=== PATIENT | female | born 1985 | race Caucasian/White ===

== ENCOUNTER 2018-07-20 11:31 | Emergency (ER) | payer OTHER ==
[2018-07-20 11:40] VITALS: BMI 26.0
[2018-07-20 13:38] LABS: BASO % 0.6 % (0-2.0); EOS % 0.8 % (0-4.5); HEMATOCRIT 41.5 % (32.4-45.2); HEMOGLOBIN 14.1 GM/dL (10.7-15.3); LYMPH % 22.6 % (8-40); MCH 32.2 pg (25.7-33.7); MEAN CELL VOLUME 94.5 fl (80-96); MEAN PLT VOLUME 8.4 fl (7.5-11.1); MONO % 6.2 % (3.8-10.2); NEUT % 69.8 % (42.8-82.8); PLATELET COUNT 369 K/MM3 (134-434); RBC 4.39 M/mm3 (3.60-5.2); RDW 12.4 % (11.6-15.6); WHITE BLOOD COUNT 6.8 K/mm3 (4.0-10.0)
[2018-07-20 14:02] LABS: ALBUMIN 4.4 g/dl (3.4-5.0); BILIRUBIN,TOTAL 0.2 mg/dL (0.2-1); CALCIUM 9.4 mg/dL (8.5-10.1); CREATININE 0.7 mg/dL (0.55-1.3); POTASSIUM 4.1 mmol/L (3.5-5.1); TOT PROT 8.1 g/dl (6.4-8.2)
--- NOTE | 2018-07-20 14:26 | PDOC ---
History of Present Illness - General Chief Complaint: Chest Pain Stated Complaint: HYPERTENSION Time Seen by Provider: 07/20/18 13:03 History Source: Patient Exam Limitations: No Limitations - History of Present Illness Initial Comments: 07/20/18 13:39 32-year-old female presents to ED with complaints of intermittent headache upper abdominal pain, and right-sided chest tightness for the past 2 weeks without aggravating or alleviating factors. 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 Patient currently asymptomatic since arrival Timing/Duration: intermittent Severity: mild Associated Symptoms: reports: denies symptoms Past History - Travel Traveled outside of the country in the last 30 days: No Close contact w/someone who was outside of country & ill: No - Past Medical History Allergies/Adverse Reactions: Allergies Allergy/AdvReac Type Severity Reaction Status Date / Time No Known Allergies Allergy Verified 07/20/18 11:40 Home Medications: Ambulatory Orders Acetaminophen [Tylenol] 650 mg PO PRN 11/08/17 Azithromycin [Zithromax -] 250 mg PO UTDICT #6 tab 11/08/17 Methylprednisolone [Medrol Dose Gio] 4 mg PO ASDIR #21 tablet 11/08/17 Anemia: Yes COPD: No - Immunization History Immunization Up to Date: Yes - Suicide/Smoking/Psychosocial Hx Smoking History: Current some day smoker Have you smoked in the past 12 months: No Number of Cigarettes Smoked Daily: 1 Information on smoking cessation initiated: No Hx Alcohol Use: No Drug/Substance Use Hx: No Substance Use Type: None Patient Lives Alone: No Lives with/in: spouse/SO Review of Systems - Review of Systems Able to Perform ROS?: No Is the patient limited Croatian proficient: No Constitutional: No: Symptoms Reported HEENTM: No: Symptoms Reported Respiratory: No: Symptoms reported Cardiac (ROS): Yes: Chest Pain (right-sided) ABD/GI: Yes: Abdominal cramping : No: Symptoms Reported Musculoskeletal: No: Symptoms Reported Integumentary: No: Symptoms Reported Neurological: Yes: Headache Endocrine: No: Symptoms Reported Hematologic/Lymphatic: No: Symptoms Reported *Physical Exam - Vital Signs Last Vital Signs Temp Pulse Resp BP Pulse Ox 98.0 F 88 16 123/74 100 07/20/18 11:37 07/20/18 11:37 07/20/18 11:37 07/20/18 11:37 07/20/18 11:37 - Physical Exam General Appearance: Yes: Nourished, Appropriately Dressed. No: Apparent Distress HEENT: positive: EOMI, SALINAS, TMs Normal, Pharynx Normal. negative: Pale Conjunctivae Neck: positive: Supple Respiratory/Chest: positive: Chest Tender (right sided at the third to fourth intercostal space lateral of sternum extending to distally of MCL), Lungs Clear , Normal Breath Sounds. negative: Respiratory Distress, Accessory Muscle Use Cardiovascular: positive: Regular Rhythm, Regular Rate. negative: Murmur Gastrointestinal/Abdominal: positive: Normal Bowel Sounds, Soft. negative: Distended, Tenderness Musculoskeletal: negative: CVA Tenderness Extremity: positive: Normal Capillary Refill. negative: Pedal Edema Integumentary: positive: Normal Color, Warm, Moist Neurologic: positive: Motor Strength 5/5 (ambulatory) ED Treatment Course - LABORATORY CBC & Chemistry Diagram: 07/20/18 13:15 07/20/18 13:15 - ADDITIONAL ORDERS Additional order review: Laboratory Results 07/20/18 07/20/18 13:15 13:15 Sodium 138 Potassium 4.1 Chloride 105 Carbon Dioxide 25 Anion Gap 7 L BUN 5 L Creatinine 0.7 Est GFR (CKD-EPI)AfAm 134.75 Est GFR (CKD-EPI)NonAf 116.26 Random Glucose 88 Calcium 9.4 Total Bilirubin 0.2 AST 20 ALT 24 Alkaline Phosphatase 115 Creatine Kinase 87 Troponin I < 0.02 Total Protein 8.1 Albumin 4.4 07/20/18 13:15 RBC 4.39 MCV 94.5 MCHC 34.0 RDW 12.4 MPV 8.4 Neutrophils % 69.8 D Lymphocytes % 22.6 D Monocytes % 6.2 Eosinophils % 0.8 Basophils % 0.6 Medical Decision Making - Medical Decision Making 07/20/18 13:53 Complaint: Episodic headache right-sided chest pain and epigastric burning over the past few weeks without discomfort presently Exam: Reproducible right-sided chest pain with no abdominal tenderness or neuro focal findings. Plan: Labs ordered 07/20/18 14:53 Laboratory Tests 07/20/18 07/20/18 07/20/18 13:15 13:15 13:15 WBC 6.8 Hgb 14.1 Hct 41.5 D Neutrophils % 69.8 D Sodium 138 Potassium 4.1 Chloride 105 Carbon Dioxide 25 Anion Gap 7 L BUN 5 L Creatinine 0.7 Random Glucose 88 Calcium 9.4 Total Bilirubin 0.2 AST 20 ALT 24 Alkaline Phosphatase 115 Creatine Kinase 87 Troponin I < 0.02 Total Protein 8.1 Albumin 4.4 Patient continues to be asymptomatic. Patient will be discharged home with referral to neurologist. *DC/Admit/Observation/Transfer Diagnosis at time of Disposition: Headache, Chest pain - Discharge Dispostion Disposition: HOME Condition at time of disposition: Good - Referrals Referrals: Bubba Sanchez MD [Staff Physician] - - Patient Instructions Printed Discharge Instructions: DI for Headache Additional Instructions: Please take Tylenol for headache. Eat small balanced meals throughout the day. If you continue with headache, follow up with referred neurologist. - Post Discharge Activity
[2018-07-20 14:53] VITALS: BP 110/60; PULSE 89; TEMP 98.5
--- NOTE | 2018-07-21 15:02 | EKG ---
Test Reason : Blood Pressure : / mmHG Vent. Rate : 079 BPM Atrial Rate : 079 BPM P-R Int : 112 ms QRS Dur : 098 ms QT Int : 354 ms P-R-T Axes : 012 063 044 degrees QTc Int : 405 ms NORMAL SINUS RHYTHM NORMAL ECG NO PREVIOUS ECGS AVAILABLE Confirmed by ONOFRE GONZALEZ MD ([id number]) on 07/21/2018 3:02:31 PM Referred By: Confirmed By:ONOFRE GONZALEZ MD
== END 2018-07-20 14:54 | disposition home or self-care (01) ==
LOC: JER 11:31
DX: R07.9 Chest pain, unspecified (principal); R51 Headache; D64.9 Anemia, unspecified; F17.210 Nicotine dependence, cigarettes, uncomplicated
CPT/HCPCS: 36415; 80053; 82550; 84484; 85025; 93005; 93010; 99283-25

== ENCOUNTER 2018-08-31 12:09 | Emergency (ER) | payer OTHER ==
[2018-08-31 12:54] VITALS: BP 134/92; PULSE 93; TEMP 98.1; BMI 25.7
--- NOTE | 2018-08-31 14:08 | PDOC ---
History of Present Illness - General Chief Complaint: Palpitations Stated Complaint: PALPITATIONS Time Seen by Provider: 08/31/18 13:35 History Source: Patient Exam Limitations: No Limitations - History of Present Illness Initial Comments: 08/31/18 13:55 32 y/o F with PMHx of Asthma presents with palpitations. Patient woke this AM in her usual state of health and went to work. During a conversation with her coworker about a recent trip the coworker was on, patient suddenly began to having feelings of her heart "skipping beats." Her coworker mentioned her ears became red and felt hot at which point she called the onsite RN who recommended she visit the ED. Patient says she has a hx of palpitations for which she has seen Cardio (Cannot recall name, only seen once) in the past and was told this was anxiety related. Since then she has had intermittent palpitations however today they were accompanied chest tightness. Additionally she complains of lightheadness and fatigue. She denies any new stress in her life. FDLMP was 08/10--Recent menstrual cycles have not lasted longer than usual and patient denies any excessive bleeding. Denies any recent trauma, travel, sick contacts or medication changes. Denies any Fevers, chills, weakness, chest pain, SOB, nausea, vomiting, diarrhea , constipation, dysuria. PCP: [facility] PMHx: Seasonal Asthma PSHx: Left Hand tendon repair, Left Knee Cyst removal Allergies: NKDA Social: 6 cigerrettes a week, DeniesEtOH or Drug use. FHx: Mother with Asthma and HLD, Father HLD Past History - Past Medical History Allergies/Adverse Reactions: Allergies Allergy/AdvReac Type Severity Reaction Status Date / Time No Known Allergies Allergy Verified 08/31/18 12:54 Home Medications: Ambulatory Orders Acetaminophen [Tylenol] 650 mg PO PRN 11/08/17 Azithromycin [Zithromax -] 250 mg PO UTDICT #6 tab 11/08/17 Methylprednisolone [Medrol Dose Gio] 4 mg PO ASDIR #21 tablet 11/08/17 Anemia: Yes COPD: No - Immunization History Immunization Up to Date: Yes - Suicide/Smoking/Psychosocial Hx Smoking History: Never smoked Have you smoked in the past 12 months: No Number of Cigarettes Smoked Daily: 1 Information on smoking cessation initiated: No Hx Alcohol Use: No Drug/Substance Use Hx: No Substance Use Type: None Review of Systems - Review of Systems Constitutional: No: Chills, Fever, Weakness HEENTM: No: Double Vision Respiratory: No: Cough, Shortness of Breath Cardiac (ROS): Yes: Lightheadedness, Palpitations, Chest Tightness. No: Chest Pain, Syncope ABD/GI: No: Abdominal Distended, Constipated, Diarrhea, Nausea, Vomiting : No: Dysuria, Hematuria Neurological: No: Numbness, Tingling *Physical Exam - Vital Signs Last Vital Signs Temp Pulse Resp BP Pulse Ox 98.1 F 93 H 18 134/92 100 08/31/18 12:47 08/31/18 12:47 08/31/18 12:47 08/31/18 12:47 08/31/18 12:47 - Physical Exam General Appearance: Yes: Nourished, Appropriately Dressed HEENT: positive: EOMI, SALINAS. negative: Photophobia, Pharyngeal Erythema, Tonsillar Exudate Neck: positive: Supple Respiratory/Chest: positive: Lungs Clear, Normal Breath Sounds. negative: Crackles, Rhonchi, Wheezing Cardiovascular: positive: Regular Rhythm, Regular Rate, S1, S2. negative: Edema , JVD, Murmur Gastrointestinal/Abdominal: positive: Normal Bowel Sounds, Soft. negative: Guarding, Rebound, Tenderness Musculoskeletal: negative: CVA Tenderness Extremity: negative: Swelling Neurologic: positive: section leader II-XII NML intact, Fully Oriented, Alert, Motor Strength 5/5. negative: Numbness, Sensory Deficit ED Treatment Course - LABORATORY CBC & Chemistry Diagram: 08/31/18 14:57 08/31/18 14:57 Medical Decision Making - Medical Decision Making 08/31/18 14:07 32 y/o F with PMHx of Asthma presents with palpitations accompanied by chest tightness. Concern for possible arrhythmia, Hyperthyroidism, Anemia; Less likely metabolic derraingements. Low suspicion for drug use. Still consider anxiety related. Check EKG, TSH, Trop, CBC, CMP, Mag, Phos. Ongoing assessment. 08/31/18 16:37 CXR: No acute chest pathology. Lab work noted above. TSH WNL, Trop neg x 1. Will check 2nd trop. 08/31/18 19:51 2nd Trop < 0.02. Having intermittent palpitations however improved since arrival in ED. Informed she will likely need a holter monitor and the importance of Cardio follow up. D/C Home with instructions to follow up with PCP and Cardiology. Return precautions given. Patient advised to follow up with Cardio. *DC/Admit/Observation/Transfer Diagnosis at time of Disposition: Palpitations - Discharge Dispostion Disposition: HOME Condition at time of disposition: Stable Decision to Admit order: No - Referrals Referrals: Louis Elaine MD [Staff Physician] - John Alba MD [Staff Physician] - - Patient Instructions Additional Instructions: You presented to the ER with palpitations. Your labwork did not reveal abnormalities. You had no further episodes during your stay. Please follow up with your PCP and Cardiology (Dr. Elaine) as you will likely need further studies AND A HOLTER MONITOR--Please call and make an appointment, Your work up is not complete until you do so. Continue all your other medications as prescribed. Please return to the ER if you have any signs or symptoms of chest pain, shortness of breath, fever, uncontrollable pain, chills, nausea, vomiting, numbness, tingling, or weakness in any part of your body, changes in vision or slurred speech. Please return to the ER if symptoms persist, worsen, or new symptoms arise. - Post Discharge Activity
[2018-08-31 15:19] LABS: BASO % 0.5 % (0-2.0); EOS % 0.6 % (0-4.5); HEMATOCRIT 45.3 % (32.4-45.2); HEMOGLOBIN 15.5 GM/dL (10.7-15.3); LYMPH % 21.8 % (8-40); MCH 32.7 pg (25.7-33.7); MCHC 34.3 g/dl (32.0-36.0); MEAN CELL VOLUME 95.5 fl (80-96); MEAN PLT VOLUME 8.1 fl (7.5-11.1); MONO % 4.8 % (3.8-10.2); NEUT % 72.3 % (42.8-82.8); PLATELET COUNT 429 K/MM3 (134-434); RBC 4.74 M/mm3 (3.60-5.2); RDW 13.2 % (11.6-15.6); WHITE BLOOD COUNT 8.7 K/mm3 (4.0-10.0)
[2018-08-31 15:35] LABS: INR 1.03 (0.83-1.09); PROTHROMBIN TIME (PATIENT) 12.2 SEC (9.7-13.0)
[2018-08-31 16:03] LABS: ALBUMIN 4.7 g/dl (3.4-5.0); BILIRUBIN,TOTAL 0.9 mg/dL (0.2-1); BLOOD UREA NITROGEN 6.4 mg/dL (7-18); CALCIUM 9.7 mg/dL (8.5-10.1); CREATININE 0.8 mg/dL (0.55-1.3); MAGNESIUM 2.5 mg/dL (1.8-2.4); PHOSPHOROUS 3.9 mg/dL (2.5-4.9); TOT PROT 9.2 g/dl (6.4-8.2)
--- NOTE | 2018-08-31 16:30 | EKG ---
Test Reason : Blood Pressure : / mmHG Vent. Rate : 093 BPM Atrial Rate : 093 BPM P-R Int : 132 ms QRS Dur : 090 ms QT Int : 358 ms P-R-T Axes : 064 061 049 degrees QTc Int : 445 ms NORMAL SINUS RHYTHM NORMAL ECG WHEN COMPARED WITH ECG OF 20-JUL-2018 11:34, NO SIGNIFICANT CHANGE WAS FOUND Confirmed by ANN MARIE BECERRA MD ([id number]) on 08/31/2018 4:30:14 PM Referred By: Confirmed By:ANN MARIE BECERRA MD
--- NOTE | 2018-08-31 17:02 | PDOC ---
Documentation entered by Joey Uriostegui SCRIBE, acting as scribe for Kristal Celeste MD. Kristal Celeste MD: This documentation has been prepared by the Moody rivas Daniel, SCRIBE, under my direction and personally reviewed by me in its entirety. I confirm that the documentation accurately reflects all work, treatment, procedures, and medical decision making performed by me. Attending Attestation - Resident Resident Name: FernandoSmita - ED Attending Attestation I have performed the following: I have examined & evaluated the patient, The case was reviewed & discussed with the resident, I agree w/resident's findings & plan, Exceptions are as noted - HPI HPI: 08/31/18 14:52 The patient is a 32 year old female with a past medical history of asthma here today for evaluation of palpitations and chest tightness. The patient reports that she was having a conversation with a coworker at work when she began to feel chest tightness, palpitations (like her heart was skipping a beat), and reports that her ears "turned red." Pt reports that the symptoms lasted for 2 minutes and resolved. The nurse at her job recommended ED evaluation which prompted her to come to the ED. She reports having episodes of palpitations in the past and has seen a juvenile justice officer in the past who said that it was anxiety related. Only family history of cardiac disease is in grandmother. Denies smoking or drug use. Denies SOB, diaphoresis, dizziness, focal weakness/numbness , N/V/D, abd pain. At this time, pt is asymptomatic. Patient denies headache, lightheadedness. Denies fever, chills. Allergies: NKA - Physicial Exam PE: 08/31/18 14:52 GENERAL: Awake, alert, and fully oriented, in no acute distress HEAD: No signs of trauma EYES: PERRLA, EOMI, sclera anicteric, conjunctiva clear ENT: Hearing grossly normal, nares patent, oropharynx clear without exudates. Moist mucosa NECK: Normal ROM, supple, no lymphadenopathy, JVD, or masses LUNGS: Breath sounds equal, clear to auscultation bilaterally. No wheezes, and no crackles HEART: Regular rate and rhythm, normal S1 and S2, no murmurs, rubs or gallops ABDOMEN: Soft, nontender, normoactive bowel sounds. No guarding, no rebound. No masses EXTREMITIES: Normal range of motion, no edema. No clubbing or cyanosis. No cords , erythema, or tenderness BACK: No midline spinal tenderness in cervical/thoracic/lumbar region NEUROLOGICAL: Normal speech, cranial nerves intact, 5/5 strength in all 4 extremities, normal sensation to light touch in all 4 extremities, normal cerebellar exam, normal gait, normal tone SKIN: Warm, Dry, normal turgor, no rashes or lesions noted. - Medical Decision Making 08/31/18 16:57 32yo F with hx asthma presents to the ED with resolved chest pressure and palpitations while at work Vitals wnl, no tachycardia Exam wnl, pt very well appearing Pt is low risk for ACS, HS is 1 PERC criteria clear, thus unlikely PE Plan for tele monitoring and to check labs including electrolytes, TSH, trop x2 and CXR for further evaluation WIll reassess 08/31/18 18:57 Trop x2 negative Pt feeling better Clinically well appearing and stable for DC home I discussed the physical exam findings, ancillary test results and final diagnoses with the patient. I answered all of the patient's questions. The patient was satisfied with the care received and felt comfortable with the discharge plan and treatment plan. The patient will call their primary care physician within 24 hours to arrange follow-up and will return to the Emergency Department with any new, persistent or worsening symptoms. Heart Score/ECG Review - History History: Slightly suspicious - Electrocardiogram EKG: Normal - Age Age: </= 45 - Risk Factors Based on the list above the patient has:: 1-2 risk factors - Troponin Troponin: </= normal limit - Score Heart Score - Total: 1 #1 08/31/18 16:56 Twelve-lead EKG was performed and reviewed by me. Normal sinus rhythm, rate 93. Normal axis and intervals. No ST elevations or T-wave inversions.
== END 2018-08-31 20:21 | disposition home or self-care (01) ==
LOC: JER 12:09
DX: R00.2 Palpitations (principal)
CPT/HCPCS: 36415; 71046-TC-FY; 80053; 82550; 83735; 84100; 84443; 84484; 84703; 85025; 85610; 93005; 93010; 99283-25

== ENCOUNTER 2018-12-19 08:24 | Emergency (ER) | payer OTHER ==
[2018-12-19 08:31] VITALS: BP 107/68; PULSE 85; TEMP 98; BMI 24.7
--- NOTE | 2018-12-19 10:05 | PDOC ---
History of Present Illness - General History Source: Patient Exam Limitations: Clinical Condition - History of Present Illness Initial Comments: 12/19/18 10:00 Patient with no significant past medical history presented with complaint of one -week history of suprapubic tenderness, urinary frequency, nausea and missed menstrual.. Patient LMP November 17. Denies fever, chills, diarrhea, constipation, hematuria. Denies any other symptoms. Patient reports seeing her PCP a week ago for symptoms and a urine test was negative. Is this a multiple visit Asthma Patient?: No Timing/Duration: 1 week <Saravanan Oliver - Last Filed: 12/19/18 12:23> <Vu Manzo - Last Filed: 12/19/18 15:59> - General Chief Complaint: Pain, Acute Stated Complaint: ABD PAIN/NAUSEA & VOMITING Time Seen by Provider: 12/19/18 09:41 Past History - Past Medical History Anemia: Yes COPD: No - Immunization History Immunization Up to Date: Yes - Psycho Social/Smoking Cessation Hx Smoking History: Never smoked Have you smoked in the past 12 months: No Number of Cigarettes Smoked Daily: 1 Information on smoking cessation initiated: No Hx Alcohol Use: No Drug/Substance Use Hx: No Substance Use Type: None <Saravanan Oliver - Last Filed: 12/19/18 12:23> <Vu Manzo - Last Filed: 12/19/18 15:59> - Past Medical History Allergies/Adverse Reactions: Allergies Allergy/AdvReac Type Severity Reaction Status Date / Time No Known Allergies Allergy Verified 08/31/18 12:54 Home Medications: Ambulatory Orders Acetaminophen [Tylenol] 650 mg PO PRN 11/08/17 Azithromycin [Zithromax -] 250 mg PO UTDICT #6 tab 11/08/17 Methylprednisolone [Medrol Dose Gio] 4 mg PO ASDIR #21 tablet 11/08/17 Nitrofurantoin Monohyd/M-Cryst [Macrobid -] 100 mg PO BID #14 capsule 12/19/18 Review of Systems - Review of Systems Able to Perform ROS?: Yes Is the patient limited Mohawk proficient: No Constitutional: No: Chills, Fever, Malaise HEENTM: No: Symptoms Reported Respiratory: No: Symptoms reported, Hemoptysis Cardiac (ROS): No: Symptoms Reported ABD/GI: Yes: Symptoms Reported, See HPI, Nausea, Abdominal cramping (suprapubic) . No: Blood Streaked Bowels, Constipated, Diarrhea, Poor Appetite, Poor Fluid Intake, Vomiting, Indigestion : Yes: Symptoms Reported, See HPI, Frequency, Pain (suprapubic), Urgency. No : Burning, Discharge, Flank Pain, Hematuria, Incontinence Musculoskeletal: No: Symptoms Reported, Back Pain All Other Systems: Reviewed and Negative <Saravanan Oliver - Last Filed: 12/19/18 12:23> *Physical Exam - Vital Signs Last Vital Signs Temp Pulse Resp BP Pulse Ox 98.0 F 85 18 107/68 99 12/19/18 08:27 12/19/18 08:27 12/19/18 08:27 12/19/18 08:27 12/19/18 08:27 - Physical Exam Comments: 12/19/18 10:03 GENERAL: Well developed, well nourished. Awake and alert. No acute distress. HEENT: Normocephalic, atraumatic. PERRLA, EOMI. No conjunctival pallor. Sclera are non-icteric. Moist mucous membranes. Oropharynx is clear. NECK: Supple. Full ROM. CARDIOVASCULAR: Regular rate and rhythm. No murmurs, rubs, or gallops. Distal pulses are 2+ and symmetric. PULMONARY: No evidence of respiratory distress. Lungs clear to auscultation bilaterally. No wheezing, rales or rhonchi. ABDOMINAL: Soft. Mild suprapubic tenderness. Non-distended. No rebound or guarding. No organomegaly. Normoactive bowel sounds. MUSCULOSKELETAL Normal range of motion at all joints. SKIN: Warm and dry. Normal capillary refill. No rashes. No cyanosis. NEUROLOGICAL: Alert, awake, appropriate. Gait is normal without ataxia. PSYCHIATRIC: Cooperative. Good eye contact. Appropriate mood General Appearance: Yes: Nourished, Appropriately Dressed. No: Apparent Distress <Saravanan Oliver - Last Filed: 12/19/18 12:23> - Vital Signs Last Vital Signs Temp Pulse Resp BP Pulse Ox 98.0 F 85 18 107/68 99 12/19/18 08:27 12/19/18 08:27 12/19/18 08:27 12/19/18 08:27 12/19/18 08:27 <Vu Manzo - Last Filed: 12/19/18 15:59> ED Treatment Course - LABORATORY CBC & Chemistry Diagram: 12/19/18 09:45 12/19/18 09:45 - RADIOLOGY Radiology Studies Ordered: Category Date Time Status TRANSVAGINAL ULTRASOUND US [US] Stat Ultrasound 12/19/18 09:49 Ordered <Saravanan Oliver - Last Filed: 12/19/18 12:23> - LABORATORY CBC & Chemistry Diagram: 12/19/18 09:45 12/19/18 09:45 - ADDITIONAL ORDERS Additional order review: Laboratory Results 12/19/18 12/19/18 12/19/18 09:45 09:45 09:45 Sodium 138 Potassium 4.2 Chloride 105 Carbon Dioxide 27 Anion Gap 6 L BUN 6.3 L Creatinine 0.7 Est GFR (CKD-EPI)AfAm 133.81 Est GFR (CKD-EPI)NonAf 115.45 Random Glucose 95 Calcium 9.5 Total Bilirubin 0.6 AST 19 ALT 22 Alkaline Phosphatase 110 Total Protein 7.8 Albumin 4.1 Urine Color Yellow Urine Appearance Clear Urine pH 6.5 Ur Specific Banks 1.004 L Urine Protein Negative Urine Glucose (UA) Negative Urine Ketones Negative Urine Blood Negative Urine Nitrite Negative Urine Bilirubin Negative Urine Urobilinogen 0.2 Ur Leukocyte Esterase Negative Urine HCG, Qual Negative 12/19/18 09:45 RBC 4.46 MCV 95.5 MCHC 34.2 RDW 13.1 MPV 8.2 Neutrophils % 61.7 Lymphocytes % 27.0 D Monocytes % 8.8 D Eosinophils % 1.8 D Basophils % 0.7 - Medications Given in the ED: ED Medications Discontinued Medications Generic Name Dose Route Start Last Admin Trade Name Freq PRN Reason Stop Dose Admin Ibuprofen 800 mg 12/19/18 11:20 12/19/18 11:27 Motrin - PO 12/19/18 11:21 800 mg ONCE ONE Administration <Vu Manzo - Last Filed: 12/19/18 15:59> Medical Decision Making - Medical Decision Making 12/19/18 10:04 Patient with no significant past medical history presented with complaint of one -week history of suprapubic tenderness, urinary frequency, nausea and missed menstrual.. Patient LMP November 17. Denies fever, chills, diarrhea, constipation, hematuria. Denies any other symptoms. Patient reports seeing her PCP a week ago for symptoms and a urine test was negative. Exam significant for mild tenderness to suprapubic area without guarding or rebound. Otherwise normal exam. Symptoms likely UTI versus . CBC, CMP, UA, urine and urine culture labs ordered. Transvaginal ultrasound ordered to evaluate for possible . Treat based on lab and imaging results 12/19/18 11:21 CBC and CMP labs wnl. uhcg neg. UA with no significant findings but giving patient complains of urinary symptoms with suprapubic abd pains, pt will be treated on macrobid pending Ucx results with follow-up with her SASH INSTALLER. Plan discussed with patient and pt agrees with plan. Motrin 800mg PO ordered for pain prior to d/c. <Saravanan Oliver - Last Filed: 12/19/18 12:23> - Medical Decision Making 12/19/18 15:59 I reviewed the case of the mid-level practitioner and was available for consultation while in the emergency department <Vu Manzo - Last Filed: 12/19/18 15:59> Discharge - Discharge Information Problems reviewed: Yes - Admission No <Saravanan Oliver - Last Filed: 12/19/18 12:23> <Vu Manzo - Last Filed: 12/19/18 15:59> - Discharge Information Clinical Impression/Diagnosis: Dysuria Condition: Stable Disposition: HOME - Additional Discharge Information Prescriptions: Nitrofurantoin Monohyd/M-Cryst [Macrobid -] 100 mg PO BID #14 capsule - Patient Discharge Instructions Patient Printed Discharge Instructions: DI for Dysuria -- Adult Additional Instructions: Your labs are normal and test is negative. Your ultrasound shows no abnormality. Your cramping pain could be from ovulation. Take prescribed medication as prescribed. Take motrin as needed for pain. Follow-up with your SASH INSTALLER in 2-3 days for follow-up as discussed. You will be contacted with urine culture results
[2018-12-19 10:09] LABS: PH,URINE 6.5 (5.0-8.0); URINE APPEARANCE CLEAR; URINE BILIRUBIN NEGATIVE (NEGATIVE); URINE COLOR YELLOW; URINE GLUCOSE (UA) NEGATIVE (NEGATIVE); URINE KETONE NEGATIVE (NEGATIVE); URINE LEUK ESTERASE NEGATIVE (NEGATIVE); URINE NITRITE NEGATIVE (NEGATIVE); URINE PROTEIN NEGATIVE (NEGATIVE); URINE UROBILINOGEN 0.2 mg/dL (0.2-1.0)
[2018-12-19 10:11] LABS: BASO % 0.7 % (0-2.0); EOS % 1.8 % (0-4.5); HEMATOCRIT 42.6 % (32.4-45.2); HEMOGLOBIN 14.6 GM/dL (10.7-15.3); MCH 32.6 pg (25.7-33.7); MCHC 34.2 g/dl (32.0-36.0); MEAN CELL VOLUME 95.5 fl (80-96); MEAN PLT VOLUME 8.2 fl (7.5-11.1); MONO % 8.8 % (3.8-10.2); NEUT % 61.7 % (42.8-82.8); PLATELET COUNT 345 K/MM3 (134-434); RBC 4.46 M/mm3 (3.60-5.2); RDW 13.1 % (11.6-15.6); WHITE BLOOD COUNT 5.7 K/mm3 (4.0-10.0)
[2018-12-19 10:37] LABS: ALBUMIN 4.1 g/dl (3.4-5.0); BILIRUBIN,TOTAL 0.6 mg/dL (0.2-1); BLOOD UREA NITROGEN 6.3 mg/dL (7-18); CALCIUM 9.5 mg/dL (8.5-10.1); CREATININE 0.7 mg/dL (0.55-1.3); POTASSIUM 4.2 mmol/L (3.5-5.1); TOT PROT 7.8 g/dl (6.4-8.2)
[2018-12-19] MEDS ORDERED: IBUPROFEN 400 MG TABLET (FP) PO ONE ×2 (11:20→11:24)
== END 2018-12-19 11:27 | disposition home or self-care (01) ==
LOC: JER 08:24
DX: R30.0 Dysuria (principal); D64.9 Anemia, unspecified
CPT/HCPCS: 36415; 76830-TC; 80053; 81003; 84703; 85025; 87086; 99283-25

== ENCOUNTER 2019-01-15 15:52 | Emergency (ER) | payer OTHER ==
--- NOTE | 2019-01-15 16:06 | PDOC ---
Rapid Medical Evaluation Time Seen by Provider: 01/15/19 15:53 Medical Evaluation: Allergies Allergy/AdvReac Type Severity Reaction Status Date / Time No Known Allergies Allergy Verified 08/31/18 12:54 01/15/19 16:04 CC: left sided chest pain. removed Nuvaring 2 months ago PE: No chest tenderness. S1S2 present. No m/r/g. Lungs CTAB Orders: Cardiac w/u Patient will proceed to ED for further evaluation. Discharge Disposition - Diagnosis Chest pain - Referrals - Patient Instructions - Post Discharge Activity
[2019-01-15 16:11] VITALS: BMI 27.4
[2019-01-15 16:31] LABS: BASO % 0.7 % (0-2.0); EOS % 1.8 % (0-4.5); HEMATOCRIT 38.2 % (32.4-45.2); LYMPH % 28.2 % (8-40); MCH 32.5 pg (25.7-33.7); MEAN CELL VOLUME 95.6 fl (80-96); MEAN PLT VOLUME 8.1 fl (7.5-11.1); MONO % 7.7 % (3.8-10.2); NEUT % 61.6 % (42.8-82.8); PLATELET COUNT 310 K/MM3 (134-434); RBC 3.99 M/mm3 (3.60-5.2); RDW 12.5 % (11.6-15.6); WHITE BLOOD COUNT 6.8 K/mm3 (4.0-10.0)
--- NOTE | 2019-01-15 16:41 | PDOC ---
History of Present Illness - General Chief Complaint: Chest Pain Stated Complaint: CHEST PAIN Time Seen by Provider: 01/15/19 15:53 History Source: Patient Exam Limitations: No Limitations - History of Present Illness Initial Comments: 01/15/19 16:27 33-year-old female with no past medical history presents to ED with complaints of substernal chest dullness constantly since yesterday. Patient states also was short of breath after going up flights of stairs. Patient states had a medical scheduled for last week which was performed at 5 weeks of gestation. Patient states no leg cramps or leg swelling. Patient denies palpitations and states did follow-up with the quantitative equity head as recommended from her last visit when she experienced palpitation. She was seen by Dr. Elaine who performed an echo and has a scheduled for stress test next week. Patient states last night was unable to sleep secondary discomfort and took Tylenol with no relief. Presenting Symptoms: Chest Pain, Short of Breath (yesterday after walking up to 3 rd floor) Timing/Duration: reports: constant Severity/Quality: reports: dull Location: reports: substernal Chest Pain Radiation: reports: no radiation Activities at Onset: reports: none Prior Chest Pain/Cardiac Workup: reports: Echocardiography, Stress Test ( scheduled for next week ( dr elaine)) Aspirin Received prior to arrival (Core Measure): Yes: no aspirin today Associated Symptoms: Yes: Chest Pain/pressure, Shortness of Breath Past History - Travel Traveled outside of the country in the last 30 days: No Close contact w/someone who was outside of country & ill: No - Past Medical History Allergies/Adverse Reactions: Allergies Allergy/AdvReac Type Severity Reaction Status Date / Time No Known Allergies Allergy Verified 08/31/18 12:54 Home Medications: Ambulatory Orders Acetaminophen [Tylenol] 650 mg PO PRN 11/08/17 Anemia: Yes COPD: No - Reproductive History Cervical CA: No Dysfunctional Uterine Bleeding: No Ectopic : No Endometrial CA: No Polycystic Ovaries: No Therapeutic (s) & number: No Tubal Ligation: No - Immunization History Immunization Up to Date: Yes - Psycho Social/Smoking Cessation Hx Smoking History: Never smoked Have you smoked in the past 12 months: No Number of Cigarettes Smoked Daily: 1 Hx Alcohol Use: No Drug/Substance Use Hx: No Substance Use Type: None Patient Lives Alone: No Lives with/in: spouse/SO Review of Systems - Review of Systems Able to Perform ROS?: No Is the patient limited Japanese proficient: No Constitutional: No: Symptoms Reported HEENTM: No: Symptoms Reported Respiratory: No: Symptoms reported Cardiac (ROS): Yes: Chest Pain ABD/GI: No: Symptoms Reported : No: Symptoms Reported Musculoskeletal: No: Symptoms Reported Integumentary: No: Symptoms Reported Neurological: No: Symptoms reported Hematologic/Lymphatic: No: Symptoms Reported *Physical Exam - Vital Signs Last Vital Signs Temp Pulse Resp BP Pulse Ox 98.4 F 92 H 18 117/68 97 01/15/19 16:05 01/15/19 16:05 01/15/19 16:05 01/15/19 16:05 01/15/19 16:50 - Physical Exam General Appearance: Yes: Nourished, Appropriately Dressed. No: Apparent Distress HEENT: negative: Pale Conjunctivae Neck: positive: Normal Thyroid Respiratory/Chest: positive: Lungs Clear, Normal Breath Sounds. negative: Chest Tender, Respiratory Distress, Accessory Muscle Use Cardiovascular: positive: Regular Rhythm, Regular Rate. negative: Murmur Gastrointestinal/Abdominal: positive: Normal Bowel Sounds, Soft. negative: Tenderness Integumentary: positive: Normal Color, Warm, Moist Neurologic: positive: Motor Strength 5/5 (ambulatory) ED Treatment Course - LABORATORY CBC & Chemistry Diagram: 01/15/19 16:22 01/15/19 16:22 - ADDITIONAL ORDERS Additional order review: Laboratory Results 01/15/19 01/15/19 01/15/19 16:40 16:22 16:22 PT with INR INR PTT (Actin FS) D-Dimer 359 Sodium 140 Potassium 3.7 Chloride 109 H Carbon Dioxide 25 Anion Gap 6 L BUN 5.8 L Creatinine 0.8 Est GFR (CKD-EPI)AfAm 113.86 Est GFR (CKD-EPI)NonAf 98.24 Random Glucose 91 Calcium 8.5 Magnesium 1.9 Total Bilirubin 0.3 AST 19 ALT 25 Alkaline Phosphatase 91 Creatine Kinase 224 H Creatine Kinase Index No Result Required. CK-MB (CK-2) < 1.0 Troponin I < 0.02 Total Protein 6.8 Albumin 3.7 Urine HCG, Qual Positive 01/15/19 16:22 PT with INR 12.60 INR 1.07 PTT (Actin FS) 31.9 D-Dimer Sodium Potassium Chloride Carbon Dioxide Anion Gap BUN Creatinine Est GFR (CKD-EPI)AfAm Est GFR (CKD-EPI)NonAf Random Glucose Calcium Magnesium Total Bilirubin AST ALT Alkaline Phosphatase Creatine Kinase Creatine Kinase Index CK-MB (CK-2) Troponin I Total Protein Albumin Urine HCG, Qual 01/15/19 16:22 RBC 3.99 MCV 95.6 MCHC 34.0 RDW 12.5 MPV 8.1 Neutrophils % 61.6 Lymphocytes % 28.2 Monocytes % 7.7 Eosinophils % 1.8 Basophils % 0.7 - Medications Given in the ED: ED Medications Discontinued Medications Generic Name Dose Route Start Last Admin Trade Name Freq PRN Reason Stop Dose Admin Ketorolac Tromethamine 60 mg 01/15/19 17:24 01/15/19 17:48 Toradol Injection - IM 01/15/19 17:25 60 mg ONCE ONE Administration Medical Decision Making - Medical Decision Making 01/15/19 16:50 Chief complaint: Constant chest dullness to the midsternal area rating to her left chest wall. Patient also states shortness of breath with exertion yesterday after walking upstairs patient status post medical at 5 weeks of gestation performed last week. Exam: Patient's heart rate 92. No reproducible chest pain. Lungs clear to auscultation. Plan: Cardiac work-up, EKG, chest x-ray if d-dimer is negative otherwise will proceed to CT of the chest to rule out PE. 01/15/19 17:58 Laboratory Tests 01/15/19 16:22 Urine HCG, Qual Positive 01/15/19 18:00 Laboratory Tests 01/15/19 01/15/19 01/15/19 16:22 16:22 16:22 WBC 6.8 Hgb 13.0 Hct 38.2 Plt Count 310 MPV 8.1 Absolute Neuts (auto) 4.2 Neutrophils % 61.6 Lymphocytes % 28.2 Monocytes % 7.7 Eosinophils % 1.8 Basophils % 0.7 Nucleated RBC % 0 PT with INR 12.60 INR 1.07 PTT (Actin FS) 31.9 D-Dimer Sodium 140 Potassium 3.7 Chloride 109 H Carbon Dioxide 25 Anion Gap 6 L BUN 5.8 L Creatinine 0.8 Est GFR (CKD-EPI)AfAm 113.86 Est GFR (CKD-EPI)NonAf 98.24 Random Glucose 91 Calcium 8.5 Magnesium 1.9 ALT 25 CK-MB (CK-2) < 1.0 Troponin I < 0.02 Urine HCG, Qual 01/15/19 01/15/19 16:22 16:40 WBC Hgb Hct Plt Count MPV Absolute Neuts (auto) Neutrophils % Lymphocytes % Monocytes % Eosinophils % Basophils % Nucleated RBC % PT with INR INR PTT (Actin FS) D-Dimer 359 Sodium Potassium Chloride Carbon Dioxide Anion Gap BUN Creatinine Est GFR (CKD-EPI)AfAm Est GFR (CKD-EPI)NonAf Random Glucose Calcium Magnesium ALT CK-MB (CK-2) Troponin I Urine HCG, Qual Positive 01/15/19 18:19 Chest x-ray negative for acute pathology. Patient states feeling better. Patient has a follow-up with Dr. Elaine quantitative equity head. Patient recommended to take Tylenol 1000 mg every 8 hours. Discharge - Discharge Information Problems reviewed: Yes Clinical Impression/Diagnosis: Chest pain Condition: Improved Disposition: HOME - Admission No - Follow up/Referral - Patient Discharge Instructions Patient Printed Discharge Instructions: DI for Atypical Chest Pain, DI for Costochondritis Additional Instructions: Please take 1000 mg of Tylenol every 8 hours. Please follow-up with your quantitative equity head. If you develop worsening chest pain difficulty breathing, fever, or palpitations please return to the ED immediately - Post Discharge Activity
[2019-01-15 16:45] LABS: INR 1.07 (0.83-1.09); PROTHROMBIN TIME (PATIENT) 12.6 SEC (9.7-13.0)
[2019-01-15 16:48] LABS: ACTIVATED PTT 31.9 SECONDS (25.2-36.5)
[2019-01-15 17:01] LABS: ALBUMIN 3.7 g/dl (3.4-5.0); ALK PHOS 91 U/L (45-117); ANION GAP 6 MMOL/L (8-16); BILIRUBIN,TOTAL 0.3 mg/dL (0.2-1); BLOOD UREA NITROGEN 5.8 mg/dL (7-18); CALCIUM 8.5 mg/dL (8.5-10.1); CHLORIDE 109 mmol/L (98-107); CO2 25 mmol/L (21-32); CREATININE 0.8 mg/dL (0.55-1.3); GLUCOSE,RANDOM 91 mg/dL (74-106); MAGNESIUM 1.9 mg/dL (1.8-2.4); POTASSIUM 3.7 mmol/L (3.5-5.1); SGOT/AST 19 U/L (15-37); SGPT/ALT 25 U/L (13-61); SODIUM 140 mmol/L (136-145); TOT PROT 6.8 g/dl (6.4-8.2)
[2019-01-15] MEDS ORDERED: KETOROLAC TROMETHAMINE 60 MG/2 ML VIAL IM ONE (17:24)
[2019-01-15] MEDS ORDERED: KETOROLAC TROMETHAMINE 60 MG/2 ML VIAL ONE (17:39)
[2019-01-15 18:30] VITALS: BP 109/86; PULSE 85; TEMP 98.1
--- NOTE | 2019-01-16 11:27 | EKG ---
Test Reason : Blood Pressure : / mmHG Vent. Rate : 093 BPM Atrial Rate : 093 BPM P-R Int : 136 ms QRS Dur : 088 ms QT Int : 356 ms P-R-T Axes : 069 066 054 degrees QTc Int : 442 ms NORMAL SINUS RHYTHM NORMAL ECG WHEN COMPARED WITH ECG OF 31-AUG-2018 12:07, NO SIGNIFICANT CHANGE WAS FOUND Confirmed by Jacob Roblero MD ([id number]) on 01/16/2019 11:26:19 AM Referred By: Confirmed By:Jacob Roblero MD
== END 2019-01-15 18:31 | disposition home or self-care (01) ==
LOC: JER 15:52
PROC: 3E0233Z Introduction of Anti-inflammatory into Muscle, Percutaneous Approach (ICD-10-PCS; principal; 2019-01-15)
DX: R07.9 Chest pain, unspecified (principal); Z98.890 Other specified postprocedural states
CPT/HCPCS: 36415; 71046-TC-FY; 80053; 82550; 82553; 83735; 84484; 84703; 85025; 85379; 85610; 85730; 93005; 93010; 96372; 99284-25

== ENCOUNTER 2020-04-05 08:06 | Emergency (ER) | payer OTHER ==
[2020-04-05 08:24] VITALS: TEMP 98.4; BMI 26.7
[2020-04-05] MEDS ORDERED: ACETAMINOPHEN 325 MG TABLET (FP) PO ONE (09:05)
[2020-04-05] MEDS ORDERED: ACETAMINOPHEN 325 MG TABLET (FP) ONE (09:20)
[2020-04-05 09:21] LABS: URINE APPEARANCE CLEAR; URINE BILIRUBIN NEGATIVE (NEGATIVE); URINE COLOR YELLOW; URINE GLUCOSE (UA) NEGATIVE (NEGATIVE); URINE KETONE NEGATIVE (NEGATIVE); URINE LEUK ESTERASE NEGATIVE (NEGATIVE); URINE NITRITE NEGATIVE (NEGATIVE); URINE PROTEIN NEGATIVE (NEGATIVE); URINE UROBILINOGEN 0.2 mg/dL (0.2-1.0)
[2020-04-05] MEDS ORDERED: LACTATED RINGERS SOLUTION 1000 ML INFUS.BAG IV ONE (11:20)
[2020-04-05 12:26] VITALS: BP 108/58; PULSE 84
[2020-04-05 13:09] LABS: POTASSIUM 5.8 mmol/L (3.5-5.1)
[2020-04-05 13:11] LABS: ALBUMIN 3.3 g/dl (3.4-5.0); BLOOD UREA NITROGEN 4.4 mg/dL (7-18); CALCIUM 8.9 mg/dL (8.5-10.1)
[2020-04-05 13:14] LABS: CREATININE 0.5 mg/dL (0.55-1.3)
[2020-04-05 13:16] LABS: BILIRUBIN,TOTAL 0.7 mg/dL (0.2-1); TOT PROT 7.1 g/dl (6.4-8.2)
[2020-04-05 13:17] LABS: BASO % 0.4 % (0-2.0); EOS % 1.2 % (0-4.5); HEMATOCRIT 36.3 % (32.4-45.2); HEMOGLOBIN 12.5 GM/dL (10.7-15.3); LYMPH % 16.6 % (8-40); MCH 32.6 pg (25.7-33.7); MCHC 34.4 g/dl (32.0-36.0); MEAN CELL VOLUME 94.7 fl (80-96); MEAN PLT VOLUME 8.9 fl (7.5-11.1); MONO % 5.8 % (3.8-10.2); PLATELET COUNT 294 K/MM3 (134-434); RBC 3.83 M/mm3 (3.60-5.2); RDW 13.2 % (11.6-15.6); WHITE BLOOD COUNT 9.3 K/mm3 (4.0-10.0)
[2020-04-05 16:53] LABS: ERYTHROCYTE SEDIMENTATION RATE 18 mm/hr (0-20)
== END 2020-04-05 13:15 | disposition home or self-care (01) ==
LOC: JER 08:06
DX: G51.0 Bell's palsy (principal)
CPT/HCPCS: 36415; 80053; 81003; 85025; 85651; 86140; 86618; 87086; 99284-25

== ENCOUNTER 2020-08-28 07:07 | Inpatient (IN) | payer OTHER ==
[2020-08-28 08:25] VITALS: BMI 31.6
[2020-08-28] MEDS ORDERED: DINOPROSTONE 10 MG VAGINAL SUPPOSITORY VG ONE (08:38)
[2020-08-28] MEDS ORDERED: BUTORPHANOL TARTRATE 1 MG/ML VIAL IVPUSH PRN (08:40)
[2020-08-28] MEDS ORDERED: PROMETHAZINE HCL 25 MG/1 ML VIAL IVPUSH ONE (08:40)
[2020-08-28 08:49] LABS: BASO % 0.5 % (0-2.0); EOS % 2.3 % (0-4.5); HEMATOCRIT 34.4 % (32.4-45.2); HEMOGLOBIN 11.6 GM/dL (10.7-15.3); LYMPH % 18.2 % (8-40); MCH 30.8 pg (25.7-33.7); MCHC 33.8 g/dl (32.0-36.0); MEAN PLT VOLUME 7.9 fl (7.5-11.1); MONO % 8.1 % (3.8-10.2); NEUT % 70.9 % (42.8-82.8); PLATELET COUNT 287 10^3/uL (134-434); RBC 3.79 M/mm3 (3.60-5.2); RDW 14.8 % (11.6-15.6); WHITE BLOOD COUNT 7.2 K/mm3 (4.0-10.0)
[2020-08-28 08:50] LABS: INR 1.01 (0.83-1.09); PROTHROMBIN TIME (PATIENT) 12.4 SEC (9.7-13.0)
[2020-08-28 08:53] LABS: ACTIVATED PTT 25.8 SECONDS (25.2-36.5)
[2020-08-28 09:07] LABS: BLOOD UREA NITROGEN 5.1 mg/dL (7-18); CALCIUM 8.7 mg/dL (8.5-10.1)
[2020-08-28 09:11] LABS: CREATININE 0.6 mg/dL (0.55-1.3)
[2020-08-28] MEDS ORDERED: OXYTOCIN 30 UNITS in 0.9% NS 30 UNIT/500 ML INFUS.BAG IVPB SCH (22:45)
[2020-08-28] MEDS ORDERED: OXYTOCIN 30 UNITS in 0.9% NS 30 UNIT/500 ML INFUS.BAG IVPB ONE (22:50)
[2020-08-28] MEDS: DEXTROSE 5%-LACTATED RINGERS 1,000 ML IV SCH (23:15)
[2020-08-29] MEDS ORDERED: BUTORPHANOL TARTRATE 2 MG/ML VIAL ONE (01:53)
[2020-08-29] MEDS ORDERED: PROMETHAZINE HCL 25 MG/1 ML VIAL ONE (01:53)
[2020-08-29] MEDS ORDERED: AMPICILLIN SODIUM 2 GM VIAL IVPB ONE (02:30)
[2020-08-29] MEDS ORDERED: AMPICILLIN SODIUM 2 GM VIAL ONE (02:39)
[2020-08-29] MEDS ORDERED: FENTANYL/BUPIVACAINE/NS/PF - PCEA - 50 ML DISP.SYRIN EP ONE (04:43)
[2020-08-29] MEDS ORDERED: ELECTROLYTE-148 SOLN 1,000 ML IV SCH (05:00)
[2020-08-29] MEDS ORDERED: NALOXONE HCL 0.4 MG/ML VIAL IVPUSH PRN (05:32)
[2020-08-29] MEDS ORDERED: FENTANYL/BUPIVACAINE/NS/PF - PCEA - 50 ML DISP.SYRIN EP SCH (05:45)
[2020-08-29] MEDS ORDERED: OXYTOCIN 20 UNITS in 0.9% NS 20 UNIT/1,000 ML INFUS.BAG IV ONE (06:35)
[2020-08-29] MEDS ORDERED: PCA PUMP NR ONE ×2 (06:35→07:52)
[2020-08-29] MEDS ORDERED: LIDOCAINE HCL 1% PRESERVATIVE FREE - 30ML VIAL ONE (06:35)
[2020-08-29] MEDS ORDERED: AMPICILLIN SODIUM 1 GM VIAL ONE (06:40)
[2020-08-29] MEDS: AMPICILLIN SODIUM 1 GM VIAL IVPB SCH ×2 (06:40→12:24)
[2020-08-29] MEDS ORDERED: METHYLERGONOVINE MALEATE 0.2 MG/1 ML AMP IM PRN (08:40)
[2020-08-29] MEDS ORDERED: BENZOCAINE 28 GM HEMORRHOIDAL OINTMENT TP PRN (08:40)
[2020-08-29] MEDS ORDERED: WITCH HAZEL 50% (TUCKS) 40 PAD/JAR PAD TP PRN (08:40)
[2020-08-29] MEDS ORDERED: BISACODYL 10 MG SUPP.RECT RC PRN (08:40)
[2020-08-29] MEDS ORDERED: BENZOCAINE 20% 57 GM BOTTLE TP PRN (08:40)
[2020-08-29] MEDS ORDERED: OXYTOCIN 20 UNITS in 0.9% NS 20 UNIT/1,000 ML INFUS.BAG IV SCH (08:45)
[2020-08-29 09:45] LABS: CORD BASE EXCESS -5.6 mmol/L (0-2); CORD HCO3 19.8 mmHg (20-29); CORD pH 7.324 (7.14-7.44)
[2020-08-29 09:48] LABS: CORD HCO3 22.9 mmHg (20-29); CORD PCO2 63.4 mmHg (30-78); CORD pH 7.176 (7.14-7.44)
[2020-08-29] MEDS ORDERED: IBUPROFEN 600 MG TABLET (FP) PO ONE (10:07)
[2020-08-29] MEDS ORDERED: ACETAMINOPHEN 325 MG TABLET (FP) ONE (10:07)
[2020-08-29] MEDS ORDERED: FERROUS SO4 325 MG TABLET (FP) ONE (10:08)
[2020-08-29] MEDS ORDERED: PRENATAL VITAMINS W/ FOLIC ACID TABLET (FP) PO ONE (10:08)
[2020-08-29] MEDS: DEXTROSE 5%-LACTATED RINGERS 1,000 ML IV SCH (10:10)
[2020-08-29] MEDS: PRENATAL VITAMINS W/ FOLIC ACID TABLET (FP) PO SCH (10:10)
[2020-08-29] MEDS: IBUPROFEN 600 MG TABLET (FP) PO PRN ×2 (10:10→21:22)
[2020-08-29] MEDS: FERROUS SO4 325 MG TABLET (FP) PO SCH ×2 (10:10→21:21)
[2020-08-29] MEDS: ACETAMINOPHEN 325 MG TABLET (FP) PO PRN ×2 (10:10→21:21)
[2020-08-30] MEDS: ACETAMINOPHEN 325 MG TABLET (FP) PO PRN (08:43)
[2020-08-30] MEDS: IBUPROFEN 600 MG TABLET (FP) PO PRN (08:44)
[2020-08-30 09:18] LABS: BASO % 0.4 % (0-2.0); EOS % 2.1 % (0-4.5); HEMATOCRIT 31.2 % (32.4-45.2); HEMOGLOBIN 10.6 GM/dL (10.7-15.3); LYMPH % 16.9 % (8-40); MCH 30.9 pg (25.7-33.7); MCHC 33.9 g/dl (32.0-36.0); MEAN CELL VOLUME 91.4 fl (80-96); MEAN PLT VOLUME 7.5 fl (7.5-11.1); MONO % 5.4 % (3.8-10.2); NEUT % 75.2 % (42.8-82.8); PLATELET COUNT 245 10^3/uL (134-434); RBC 3.41 M/mm3 (3.60-5.2); RDW 15.4 % (11.6-15.6); WHITE BLOOD COUNT 9.2 K/mm3 (4.0-10.0)
[2020-08-30] MEDS: FERROUS SO4 325 MG TABLET (FP) PO SCH (09:33)
[2020-08-30] MEDS: PRENATAL VITAMINS W/ FOLIC ACID TABLET (FP) PO SCH (09:33)
[2020-08-30 11:31] VITALS: BP 101/68; PULSE 88; TEMP 98.4
[2020-08-30] MEDS ORDERED: SENNOSIDES/DOCUSATE COMBO (SENNA PLUS) TABLET (UD) PO PRN (22:00)
== END 2020-08-30 21:00 | disposition home or self-care (01) | DRG 560 ==
LOC: JLDR 07:07 → J3W 08-29 13:54
PROVIDERS: ADMIT Obstetrics & Gynecology; ATTEND Obstetrics & Gynecology
PROC: 3E0P7VZ Introduction of Hormone into Female Reproductive, Via Natural or Artificial Opening (ICD-10-PCS; principal; 2020-08-28)
PROC: 10907ZC Drainage of Amniotic Fluid, Therapeutic from Products of Conception, Via Natural or Artificial Opening (ICD-10-PCS; 2020-08-29)
PROC: 10E0XZZ Delivery of Products of Conception, External Approach (ICD-10-PCS; 2020-08-29)
PROC: 10H073Z Insertion of Monitoring Electrode into Products of Conception, Via Natural or Artificial Opening (ICD-10-PCS; 2020-08-29)
DX: O69.81X0 Labor and delivery complicated by cord around neck, without compression, not applicable or unspecified (principal); Z3A.39 39 weeks gestation of pregnancy; Z37.0 Single live birth; Z86.69 Personal history of other diseases of the nervous system and sense organs
CPT/HCPCS: 36415; 36600; 59409; 80048; 82803; 85025; 85610; 85730; 86780; 86850; 86900; 86901; C9803; U0003; U0005

== ENCOUNTER 2020-09-09 18:12 | Emergency (ER) | payer OTHER ==
[2020-09-09 18:20] VITALS: BP 119/82; TEMP 98.7; BMI 29.5
[2020-09-09] MEDS ORDERED: KETOROLAC TROMETHAMINE 30 MG/1 ML VIAL IVPUSH ONE (21:25)
[2020-09-09] MEDS ORDERED: KETOROLAC TROMETHAMINE 30 MG/1 ML VIAL IM ONE (22:05)
[2020-09-09] MEDS ORDERED: KETOROLAC TROMETHAMINE 30 MG/1 ML VIAL ONE (22:06)
[2020-09-09 23:49] VITALS: PULSE 60
== END 2020-09-09 23:50 | disposition home or self-care (01) ==
LOC: JER 18:12
PROC: 3E0233Z Introduction of Anti-inflammatory into Muscle, Percutaneous Approach (ICD-10-PCS; principal; 2020-09-09)
DX: M54.2 Cervicalgia (principal)
CPT/HCPCS: 99284-25

== ENCOUNTER 2022-01-12 09:40 | Emergency (ER) | payer OTHER ==
[2022-01-12 09:48] VITALS: BP 109/76; PULSE 96; RESP 18; TEMP 97.9; BMI 25.7
[2022-01-12] MEDS ORDERED: LIDOCAINE 5% TOPICAL PATCH TP ONE (10:26)
[2022-01-12] MEDS ORDERED: IBUPROFEN 600 MG TABLET (FP) PO ONE ×2 (10:27→10:30)
[2022-01-12] MEDS ORDERED: METHOCARBAMOL 500 MG TABLET PO ONE (10:27)
[2022-01-12] MEDS ORDERED: LIDOCAINE 5% TOPICAL PATCH ONE ×2 (10:30→10:44)
[2022-01-12] MEDS ORDERED: METHOCARBAMOL 500 MG TABLET ONE (10:30)
[2022-01-12] MEDS ORDERED: LIDOCAINE PATCH REMOVAL MC SCH (22:00)
== END 2022-01-12 10:53 | disposition home or self-care (01) ==
LOC: JERFT 09:40
DX: S13.4XXA Sprain of ligaments of cervical spine, initial encounter (principal); V49.49XA Driver injured in collision with other motor vehicles in traffic accident, initial encounter
CPT/HCPCS: 99283-25

== ENCOUNTER 2022-03-02 04:12 | Day surgery (SDC) | payer OTHER ==
[2022-03-01 16:33] VITALS: BMI 25.7
[~2022-03-02 04:12] MED LIST: BUPIVACAINE HCL/PF 0.5% (5MG/ML) 10 ML VIAL IJ ONE
[2022-03-02] MEDS ORDERED: oxyCODONE HCL 5 MG TABLET PO PRN (07:54)
[2022-03-02] MEDS ORDERED: ONDANSETRON 4 MG/2 ML VIAL IVPUSH PRN (07:54)
[2022-03-02] MEDS ORDERED: PROMETHAZINE HCL 25 MG/1 ML VIAL IVPUSH PRN (07:54)
[2022-03-02] MEDS ORDERED: LACTATED RINGERS SOLUTION 1,000 ML IV SCH (08:00)
[2022-03-02] MEDS ORDERED: BUPIVACAINE HCL/PF 0.5% (5MG/ML) 10 ML VIAL ONE (09:53)
[2022-03-02] MEDS ORDERED: FENTANYL CITRATE/PF 50 MCG/ML VIAL ONE ×5 (09:58→11:32)
[2022-03-02] MEDS ORDERED: MIDAZOLAM HCL 2 MG/2 ML SINGLE DOSE VIAL ONE (09:59)
[2022-03-02] MEDS ORDERED: PROPOFOL 20 ML ONE (09:59)
[2022-03-02] MEDS ORDERED: ROCURONIUM BROMIDE 50 MG/5 ML SYRINGE ONE (09:59)
[2022-03-02] MEDS ORDERED: LIDOCAINE HCL/PF 2% SDV 5ML VIAL ONE (10:00)
[2022-03-02] MEDS ORDERED: ONDANSETRON 4 MG/2 ML VIAL ONE ×2 (10:29→12:38)
[2022-03-02] MEDS ORDERED: DEXAMETHASONE SOD PHOSPHATE 4 MG/1 ML VIAL ONE (10:29)
[2022-03-02] MEDS ORDERED: KETOROLAC TROMETHAMINE 30 MG/1 ML VIAL ONE (10:30)
[2022-03-02] MEDS ORDERED: BUPIVACAINE HCL/PF 0.5% (5MG/ML) 10 ML VIAL IJ ONE (10:36)
[2022-03-02] MEDS ORDERED: NEOSTIGMINE METHYLSULFATE 0.5 MG/ML - 10 ML MDV ONE (10:56)
[2022-03-02] MEDS ORDERED: GLYCOPYRROLATE 0.2 MG/1 ML VIAL ONE (10:56)
[2022-03-02] MEDS: FENTANYL CITRATE/PF 50 MCG/ML VIAL IVPUSH PRN ×3 (11:14→11:37)
[2022-03-02] MEDS ORDERED: ACETAMINOPHEN 1000 MG/100 ML BAG IVPB ONE ×2 (11:45→11:51)
[2022-03-02] MEDS ORDERED: ACETAMINOPHEN INJECTION 100 ML IVPB ONE (11:46)
[2022-03-02 13:07] VITALS: RESP 16; TEMP 97.6
[2022-03-02 14:53] VITALS: BP 110/70; PULSE 80
== END 2022-03-02 14:10 | disposition home or self-care (01) ==
LOC: JASU-SURG 04:12
PROVIDERS: ATTEND Student in an Organized Health Care Education/Training Program
PROC: 0UB74ZZ Excision of Bilateral Fallopian Tubes, Percutaneous Endoscopic Approach (ICD-10-PCS; principal; 2022-03-02 09:30)
DX: Z30.2 Encounter for sterilization (principal); Z64.1 Problems related to multiparity
CPT/HCPCS: 81025; 88302-TC; 94760

== ENCOUNTER 2023-02-28 17:33 | Emergency (ER) | payer OTHER ==
[2023-02-28 18:33] VITALS: BP 117/68; PULSE 92; RESP 18; TEMP 98.1; BMI 25.7
[2023-02-28] MEDS ORDERED: ALBUTEROL SO4 2.5/IPRATROPIUM 0.5 INH SOL 3 ML VIAL.NEB. NEB ONE (20:30)
[2023-02-28 21:18] LABS: THROAT:GRP A STREP NOT DETECTED (NOTDETECTED)
[2023-02-28 22:41] LABS: CHLORIDE 106 mmol/L (98-107); POTASSIUM 3.7 mmol/L (3.5-5.1); SODIUM 140 mmol/L (136-145)
[2023-02-28 22:42] LABS: CALCIUM 9.2 mg/dL (8.5-10.1)
[2023-02-28 22:43] LABS: ALBUMIN 3.7 g/dl (3.4-5.0); ANION GAP 9 mmol/L (4-13); BLOOD UREA NITROGEN 6.5 mg/dL (7-18); CO2 25 mmol/L (21-32); GLUCOSE,RANDOM 128 mg/dL (74-106)
[2023-02-28 22:46] LABS: CREATININE 0.8 mg/dL (0.55-1.3); SGOT/AST 29 U/L (15-37); SGPT/ALT 51 U/L (13-61)
[2023-02-28 22:48] LABS: BILIRUBIN,TOTAL < 0.1 mg/dL (0.2-1); TOT PROT 7.2 g/dl (6.4-8.2)
[2023-02-28 22:49] LABS: ALK PHOS 124 U/L (45-117)
[2023-02-28] MEDS ORDERED: DEXTROMETHORPHAN/PROMETHAZINE 15 MG/6.25 MG/5 ML SYRUP PO ONE (23:54)
== END 2023-03-01 00:26 | disposition home or self-care (01) ==
LOC: JER 17:33 → JERFT 17:33
PROC: 3E0F7GC Introduction of Other Therapeutic Substance into Respiratory Tract, Via Natural or Artificial Opening (ICD-10-PCS; principal; 2023-02-28)
DX: J45.51 Severe persistent asthma with (acute) exacerbation (principal); R05.9 Cough, unspecified; R09.89 Other specified symptoms and signs involving the circulatory and respiratory systems; R06.02 Shortness of breath; R09.81 Nasal congestion; Z20.822 Contact with and (suspected) exposure to COVID-19
CPT/HCPCS: 0241U-QW; 36415; 71046-TC-FY; 80053; 84484; 84703; 85379; 87651; 93005; 93010; 99285-25

== ENCOUNTER → 2023-10-22 | Emergency (ER) | payer SELFPAY ==
[2023-10-22 17:31] VITALS: BP 119/86; PULSE 108; RESP 20; TEMP 97.7; BMI 25.7
== END ==
LOC: JER 17:22
DX: Z53.21 Procedure and treatment not carried out due to patient leaving prior to being seen by health care provider (principal)
CPT/HCPCS: 99281-25